=== PATIENT | male | born 1990 | race Caucasian/White ===

== ENCOUNTER 2021-11-16 15:46 | Emergency (ER) | payer SELFPAY ==
[~2021-11-16] VITALS: Ht 185.4 cm; Wt 112.9 kg
[2021-11-16 15:47] VITALS: BP 134/91
[2021-11-16] MEDS ORDERED: ALBU83IN NEB (16:04)
[2021-11-16] MEDS ORDERED: MUCI60TA7 PO (16:04)
== END 2021-11-16 21:32 | disposition left against medical advice (07) ==
LOC: M ED 15:46
DX: Z53.21 Procedure and treatment not carried out due to patient leaving prior to being seen by health care provider (principal)

== ENCOUNTER 2023-06-24 07:05 | Emergency (ER) | payer SELFPAY ==
[~2023-06-24] VITALS: Ht 182.9 cm; Wt 106.4 kg
[~2023-06-24 07:05] MED LIST: ALBU2.5V10 NEB; MUCI60TA7 PO
[2023-06-24] MEDS ORDERED: IBUP80TA PO (09:03)
[2023-06-24 09:09] VITALS: BP 135/95; TEMP 97.8; O2SAT 98
== END 2023-06-24 09:12 | disposition home or self-care (01) ==
LOC: M ED 07:05
DX: S22.32XA Fracture of one rib, left side, initial encounter for closed fracture (principal); W01.0XXA Fall on same level from slipping, tripping and stumbling without subsequent striking against object, initial encounter; F17.200 Nicotine dependence, unspecified, uncomplicated; F10.10 Alcohol abuse, uncomplicated; Z88.1 Allergy status to other antibiotic agents; Z79.1 Long term (current) use of non-steroidal anti-inflammatories (NSAID)